=== PATIENT | male | born 2000 | race Caucasian/White ===

== ENCOUNTER 2018-11-17 11:48 | Emergency (ER) | payer MEDICAID ==
[~2018-11-17] VITALS: Ht 180.3 cm; Wt 95.3 kg
--- NOTE | 2018-11-17 11:56 | NUR ---
Dr Hassan at the bedside for MSE.
[2018-11-17] MEDS ORDERED: LIDOCAINE HCL 1% 20 ML VIAL TP ONE (12:00)
[2018-11-17] MEDS ORDERED: NEOMY/BACITRA/POLYMYXIN B OINT UD PACKET TP ONE ×2 (12:00→12:07)
[2018-11-17] MEDS ORDERED: TDAP DIPH,PERTUSS,TET VAC/PF 0.5 ML DISP.SYRIN IM ONE ×2 (12:00→12:07)
[2018-11-17] MEDS ORDERED: HYDROCODONE/APAP 5-325MG TABLET PO ONE (12:00)
[2018-11-17] MEDS ORDERED: HYDROCODONE/APAP 5-325MG TABLET ONE (12:07)
[2018-11-17 12:59] VITALS: BP 118/79
--- NOTE | 2018-11-17 13:01 | NUR ---
Patient discharged to home in stable conditon. Written and verbal after care instructions given. Patient verbalizes understanding of instructions.
== END 2018-11-17 13:02 | disposition home or self-care (01) ==
LOC: ER 11:48
DX: S62.631B Displaced fracture of distal phalanx of left index finger, initial encounter for open fracture (principal); W26.8XXA Contact with other sharp object(s), not elsewhere classified, initial encounter; Y93.89 Activity, other specified; Y92.89 Other specified places as the place of occurrence of the external cause; Y99.8 Other external cause status
CPT/HCPCS: 29130; 73140; 90471; 90715; 99283; J3490; A4217; A4663

== ENCOUNTER 2018-11-21 12:49 | Emergency (ER) | payer MEDICAID ==
[~2018-11-21] VITALS: Ht 180.3 cm; Wt 99.8 kg
--- NOTE | 2018-11-21 13:31 | NUR ---
PER MD ORDER, SOAK LT INDEX FINGER IN HYDROGEN PROXIDE.
[2018-11-21] MEDS ORDERED: NEOMY/BACITRA/POLYMYXIN B OINT UD PACKET TP ONE ×2 (13:40→13:45)
--- NOTE | 2018-11-21 13:58 | NUR ---
Patient discharged to home in stable conditon. Written and verbal after care instructions given. Patient verbalizes understanding of instructions.
[2018-11-21 13:59] VITALS: BP 124/65
== END 2018-11-21 13:59 | disposition home or self-care (01) ==
LOC: ER 12:49
DX: S62.631D Displaced fracture of distal phalanx of left index finger, subsequent encounter for fracture with routine healing (principal); S61.211D Laceration without foreign body of left index finger without damage to nail, subsequent encounter; X58.XXXD Exposure to other specified factors, subsequent encounter
CPT/HCPCS: A4217; A4663